=== PATIENT | male | born 1980 | race Caucasian/White ===

== ENCOUNTER 2017-05-25 11:37 | Emergency (ER) | payer SELFPAY ==
[~2017-05-25] VITALS: Ht 180.3 cm; Wt 93.0 kg
[2017-05-25 12:10] VITALS: Ht 180.3 cm; Wt 93.0 kg
[2017-05-25 14:35] VITALS: BP 147/67
== END 2017-05-25 14:35 | disposition home or self-care (01) ==
LOC: ED 11:37
DX: I88.9 Nonspecific lymphadenitis, unspecified (principal)